=== PATIENT | female | born 1955 | race Caucasian/White ===

== ENCOUNTER → 2017-01-01 | Day surgery (SDC) | payer MEDICARE, MEDICAID ==
[~2017-01-01] MED LIST: Lactated Ringers 1,000 ML IV SCH; Propofol 200 MG/20 ML SDV IV ONE
[2017-01-01 11:36] VITALS: BP 98/59
--- NOTE | 2017-01-01 14:55 | OR ---
DATE OF OPERATION: 01/01/2017 PREOPERATIVE DIAGNOSIS: ALTERED BOWEL HABITS. POSTOPERATIVE DIAGNOSIS: ALTERED BOWEL HABITS. SURGEON: Elbert Fine MD PROCEDURE: FULL-LENGTH COLONOSCOPY. 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 COMPLICATIONS: None. FINDINGS: Normal full-length colonoscopy. RECOMMENDATIONS: Routine colonoscopy every 10 years. INDICATIONS: Ms. Starks was in for routine physical. She has been having some altered bowel habits, has been about nine years since her last colonoscopy. We elected to proceed. DESCRIPTION OF PROCEDURE: The patient was prepped and draped, placed in the left lateral decubitus position. A lubricated Olympus colonoscope was inserted and easily advanced to the cecum. Direct visualization of the ileocecal valve was accomplished. The bowel prep was adequate. Upon withdrawal of the scope, throughout the entire length of the colon, I found no signs of any polyps, mass, ulcerations, or bleeding sites. No vascular abnormalities or signs of colitis. There were no significant diverticula. The rectal vault was unremarkable. Retroflexion of scope in the rectum showed no anal lesions. Air was then suctioned. Scope was removed without complication. VAHE/BENJY /[id number]
== END ==
LOC: CC.SDS 09:56
PROVIDERS: ATTEND Family Medicine
DX: R19.4 Change in bowel habit (principal); F41.8 Other specified anxiety disorders; E78.5 Hyperlipidemia, unspecified; E03.9 Hypothyroidism, unspecified; Z88.8 Allergy status to other drugs, medicaments and biological substances; Z91.018 Allergy to other foods; Z91.09 Other allergy status, other than to drugs and biological substances; Z91.038 Other insect allergy status; Z79.82 Long term (current) use of aspirin; Z79.899 Other long term (current) drug therapy; Z98.890 Other specified postprocedural states; Z87.891 Personal history of nicotine dependence
CPT/HCPCS: 45378; J2704; J7120; 00810

== ENCOUNTER 2017-12-09 00:46 | Emergency (ER) | payer MEDICARE, MEDICAID ==
[2017-12-09 00:49] VITALS: BP 115/87
[2017-12-09] MEDS ORDERED: Silver Sulfadiazine 1% Crm 20 GM Tube TOP ONE (00:49)
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
== END 2017-12-09 01:10 | disposition home or self-care (01) ==
LOC: CC.ED 00:46
DX: T22.212A Burn of second degree of left forearm, initial encounter (principal); Z88.5 Allergy status to narcotic agent; Z91.048 Other nonmedicinal substance allergy status; Z91.018 Allergy to other foods; Z88.8 Allergy status to other drugs, medicaments and biological substances; Z79.82 Long term (current) use of aspirin; Z79.899 Other long term (current) drug therapy; Z87.891 Personal history of nicotine dependence
CPT/HCPCS: 16020; 99282; 99283; A9270-GY

== ENCOUNTER 2019-01-13 10:42 | Emergency (ER) | payer MEDICAID, MEDICARE ==
[2019-01-13 10:59] VITALS: BP 131/86; PULSE 83
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
== END 2019-01-13 13:00 | disposition home or self-care (01) ==
LOC: CC.ED 10:42
DX: S52.612A Displaced fracture of left ulna styloid process, initial encounter for closed fracture (principal); S52.502A Unspecified fracture of the lower end of left radius, initial encounter for closed fracture; I25.2 Old myocardial infarction; E03.9 Hypothyroidism, unspecified; Z88.5 Allergy status to narcotic agent; Z91.048 Other nonmedicinal substance allergy status; Z91.018 Allergy to other foods; Z91.038 Other insect allergy status; Z88.8 Allergy status to other drugs, medicaments and biological substances; Z79.82 Long term (current) use of aspirin; Z79.899 Other long term (current) drug therapy; Y04.0XXA Assault by unarmed brawl or fight, initial encounter
CPT/HCPCS: 29125; 73110-LT; 99283; 99283-25